=== PATIENT | male | born 1990 ===

== ENCOUNTER 2017-12-06 03:10 | Emergency (ER) | payer OTHER ==
[2017-12-06] MEDS ORDERED: Acetaminophen 500 MG TAB ONE (03:42)
[2017-12-06 04:04] LABS: Anion Gap 14 mmol/L (10-20); BUN (Urea Nitrogen) 31 mg/dL (8.9-20.6); CK (CPK) 220 U/L (30-200); Calc. Creatinine Clearance 0 mL/min (70-130); Calcium 9.7 mg/dL (7.8-10.44); Carbon Dioxide 34 mmol/L (22-29); Chloride 91 mmol/L (98-107); Estimated GFR-MDRD 76; Glucose 107 mg/dL (70-105); Sodium 136 mmol/L (136-145)
[2017-12-06 04:07] LABS: CKMB 1.8 ng/mL (0-6.6); Potassium 2.9 mmol/L (3.5-5.1); Troponin I 0.016 ng/mL (< 0.028)
== END 2017-12-06 04:07 | disposition left against medical advice (07) ==
LOC: ERS 03:10
DX: R07.9 Chest pain, unspecified (principal); E87.6 Hypokalemia; I11.0 Hypertensive heart disease with heart failure; I50.9 Heart failure, unspecified; I25.10 Atherosclerotic heart disease of native coronary artery without angina pectoris; E66.9 Obesity, unspecified; F41.9 Anxiety disorder, unspecified; F32.9 Major depressive disorder, single episode, unspecified
CPT/HCPCS: 36415; 94760